=== PATIENT | male | born 1965 | race Caucasian/White ===

== ENCOUNTER 2019-03-11 11:45 | Inpatient (IN) | payer MEDICARE ==
[~2019-03-11] VITALS: Ht 175.3 cm; Wt 40.8 kg
[~2019-03-11 11:45] MED LIST: ADVAIR 250/501 DISK INH; ASPIRIN325 MG PO; AUGMENTIN 875-11 TAB PO; BAYER CHEWABLE81 MG PO; KLOR-CON 1010 MEQ PO; LANOXIN125 MCG PO; LASIX40 MG; LASIX40 MG PO; LOPRESSOR25 MG PO; METOPROLOL TART50 MG PO; PACERONE200 MG PO; PLAVIX75 MG PO; PRAVACHOL20 MG PO; PREDNISONE20 MG PO; XANAX0.25 MG PO
[2019-03-11 12:28] LABS: ALBUMIN 3.4 g/dL (3.4-5.0); ALKALINE PHOSPHATASE 71 U/L (46-116); ALT (SGPT) 15 U/L (10-68); BILIRUBIN - TOTAL 0.65 mg/dL (0.2-1.3); CALC OSMOLALITY 275 mosm/kg (275-300); CALCIUM 8.9 mg/dL (8.5-10.1); CARBON DIOXIDE 21.5 mmol/L (21.0-32.0); CHLORIDE - SERUM 94 mmol/L (98-107); GLUCOSE 98 mg/dL (74-106); PROTEIN - SERUM 6.9 g/dL (6.4-8.2); SODIUM 135 mmol/L (136-145); UREA NITROGEN 28 mg/dL (7-18); eGFR NON AFRICAN AMERICAN 82 mL/min (90-120)
[2019-03-11 12:36] LABS: POTASSIUM - SERUM 2.8 mmol/L (3.5-5.1)
--- NOTE | 2019-03-11 12:36 | NUR ---
DR. MENDENHALL NOTIFIED AND REVIEWED PATIENT'S BEHAVIOR AND ASSESSMENT RESULTS. PATIENT IS AT LOW RISK PER DR. MENDENHALL. RESOURCES GIVEN AND REVIEWED WITH PATIENT. HE VERBALIZES UNDERSTANDING.
[2019-03-11 12:44] LABS: BASOPHILS 0 % (0-2); EOSINOPHILS 0.1 % (0-7); HEMOGLOBIN 10.5 g/dL (13.5-17.5); IMMATURE GRANULOCYTES 0.3 % (0-5); LYMPHOCYTES 5.2 % (15-50); MCH 35.2 pg (26.0-34.0); MCHC 33.9 g/dL (31.0-37.0); MEAN PLATELET VOLUME 10.4 fL (7.4-10.4); MONOCYTES 4.9 % (2-11); NEUTROPHILS 89.5 % (40-80); RBC 2.98 10x6/uL (4.20-6.10); RDW 25.7 % (11.5-14.5); WBC 7.3 10x3/uL (4.8-10.8)
[2019-03-11 12:52] LABS: PLATELET COUNT 72 10x3/uL (130-400)
[2019-03-11 13:12] LABS: PLATELET ESTIMATE DECREASED
[2019-03-11 13:13] LABS: ANISOCYTOSIS OCC; CRENATED CELLS OCC; ROULEAUX OCC
[2019-03-11 14:47] LABS: CREATINE KINASE 52 UL (21-232); MAGNESIUM - SERUM 1.9 mg/dL (1.8-2.4); TROPONIN-I 0.038 ng/mL (0.000-0.060)
[2019-03-11 16:14] LABS: THYROID STIMULATING HORMONE 5.17 uIU/mL (0.36-3.74)
[2019-03-11 16:42] LABS: APPEARANCE CLEAR (CLEAR); BILIRUBIN NEGATIVE (NEGATIVE); COLOR YELLOW (YELLOW); GLUCOSE NEGATIVE (NEGATIVE); KETONE MODERATE mg/dL (NEGATIVE); NITRITE NEGATIVE (NEGATIVE); PROTEIN NEGATIVE (NEGATIVE); UROBILINOGEN NORMAL (NORMAL)
[2019-03-11 16:43] LABS: WHITE CELLS - URINE OCC /hpf (NEGATIVE)
[2019-03-11 16:45] LABS: RED CELLS - URINE 0-5 /hpf (0-5)
[2019-03-11 21:21] LABS: APTT 36.6 SECONDS (22.8-39.4); INR 0.99 (0.85-1.17)
[2019-03-11 21:42] LABS: % SATURATION 29 % (15-55); IRON 86 ug/dl (35-150); TOTAL IRON BIND CAPACITY 296 ug/dl (260-445); UNSAT IRON BIND CAPACITY 210 ug/dl (150-375)
[2019-03-12] VITALS (7 sets, daily range): BP systolic 109–154; BP diastolic 49–92; BMI 13.3; BMI 13.2
[2019-03-12 05:25] LABS: BASOPHILS 0 % (0-2); EOSINOPHILS 0.3 % (0-7); HEMATOCRIT 27.3 % (42.0-54.0); HEMOGLOBIN 9.3 g/dL (13.5-17.5); IMMATURE GRANULOCYTES 0.4 % (0-5); LYMPHOCYTES 12.8 % (15-50); MCH 35.5 pg (26.0-34.0); MCHC 34.1 g/dL (31.0-37.0); MCV 104.2 fL (80.0-100.0); MONOCYTES 6.4 % (2-11); NEUTROPHILS 80.1 % (40-80); PLATELET COUNT 66 10x3/uL (130-400); RBC 2.62 10x6/uL (4.20-6.10); RDW 25.9 % (11.5-14.5); WBC 7.8 10x3/uL (4.8-10.8)
[2019-03-12 06:00] LABS: CALCIUM 8.4 mg/dL (8.5-10.1); CARBON DIOXIDE 24.7 mmol/L (21.0-32.0); CHLORIDE - SERUM 99 mmol/L (98-107); CREATININE - SERUM 0.8 mg/dL (0.6-1.3); MAGNESIUM - SERUM 1.6 mg/dL (1.8-2.4); SODIUM 137 mmol/L (136-145); eGFR NON AFRICAN AMERICAN > 90 mL/min (90-120)
[2019-03-12 06:03] LABS: CALC OSMOLALITY 272 mosm/kg (275-300); GLUCOSE 70 mg/dL (74-106); UREA NITROGEN 14 mg/dL (7-18)
[2019-03-12 06:04] LABS: POTASSIUM - SERUM 2.7 mmol/L (3.5-5.1)
--- NOTE | 2019-03-12 08:14 | NUR ---
PATIENT RECIEVED RESTING IN BED, RESPIRATIONS REGULAR AND NONLABORED. REPORTS PAIN TO MOUTH AND THROAT AREA. DIFFICULT TO UNDERSTAND SPEECH AT TIMES. WILL GIVE MORPHINE IN TIME ALLOWED. CL IN REACH
[2019-03-13 00:30] VITALS: BP 107/65
--- NOTE | 2019-03-13 04:27 | NUR ---
PATIENT STATED HE COULD NOT BREATHE. PATIENTS O2 SAT WAS AT 75. PUT PATIENTS OXYGEN ON AND CALLED RT. RT STARTED PATIENT ON HIGH FLOW NASAL CANULA AT 9L/MIN. O2 SAT WENT BACK UP TO 98%.
[2019-03-13 05:30] VITALS: BP 161/102
[2019-03-13 06:24] LABS: BASOPHILS 0 % (0-2); EOSINOPHILS 0 % (0-7); HEMATOCRIT 25.3 % (42.0-54.0); HEMOGLOBIN 8.6 g/dL (13.5-17.5); IMMATURE GRANULOCYTES 1.1 % (0-5); LYMPHOCYTES 2.2 % (15-50); MCV 105.9 fL (80.0-100.0); MEAN PLATELET VOLUME 9.1 fL (7.4-10.4); MONOCYTES 4.1 % (2-11); NEUTROPHILS 92.6 % (40-80); RBC 2.39 10x6/uL (4.20-6.10); RDW 26.6 % (11.5-14.5); WBC 9.2 10x3/uL (4.8-10.8)
[2019-03-13 06:37] LABS: CARBON DIOXIDE 26.9 mmol/L (21.0-32.0); CHLORIDE - SERUM 99 mmol/L (98-107); CREATININE - SERUM 0.7 mg/dL (0.6-1.3); MAGNESIUM - SERUM 1.9 mg/dL (1.8-2.4); SODIUM 133 mmol/L (136-145); UREA NITROGEN 11 mg/dL (7-18); eGFR NON AFRICAN AMERICAN > 90 mL/min (90-120)
[2019-03-13 06:39] LABS: CALC OSMOLALITY 267 mosm/kg (275-300); GLUCOSE 153 mg/dL (74-106); POTASSIUM - SERUM 4.6 mmol/L (3.5-5.1)
[2019-03-13 06:42] LABS: PLATELET COUNT 50 10x3/uL (130-400)
[2019-03-13 07:07] LABS: PLATELET ESTIMATE DECREASED
[2019-03-13 09:24] VITALS: BP 119/76
[2019-03-13 13:41] VITALS: BP 104/67
[2019-03-13 14:46] VITALS: Ht 175.3 cm; Wt 40.8 kg
--- NOTE | 2019-03-13 14:51 | NUR ---
Nutrition consult for PET tube feeding: PEG tube placed this afternoon and will be usable @ 1800 per surgeon RDN will order Osmolite 1.0 pillo to start @ 20 ml/hr. Check residuals per protocol. If residuals ate < 125 ml, increase TF 10 ml q 6 hours to goal rate of 55 ml/hr. Flush tube with 100 ml H2O q 4 hours. HOB > [address] following.
--- NOTE | 2019-03-13 16:30 | NUR ---
PATIENT IV CAME OUT. CATH TIP INTACT. RESTARTED IN LEFT FA X 1 STICK WITH NO PROBLEMS. FAMILY AT BEDSIDE. CALL LIGHT WITHIN REACH. PEG TUBE INTACT.
[2019-03-13 17:16] VITALS: BP 133/81
[2019-03-13 20:00] VITALS: BP 152/98
[2019-03-14] VITALS: BP 114/72
--- NOTE | 2019-03-14 01:56 | NUR ---
I have reviewed this patient and I concur with the Shift Assessment completed by the Licensed Practical Nurse today this shift.
--- NOTE | 2019-03-14 02:26 | NUR ---
PT RESTING IN BED. EYES CLOSED. NO SIGNS OF DISTRESS. BREATHING EVEN AND UNLABROED. 6LO2 HIGH FLOW NASAL CANNULA. LUNG SOUNDS DIMINISHED AND WHEEZING PRESENT. TELE MONITOR ON 80 NORMAL SINUS. LT UPPER ABD PEG TUBE PRESENT. NO LOWER LEG SWELLING PRESENT. WILL CONTINUE PLAN OF CARE. CALL LIGHT IN REACH. BED LOWERED AND LOCKED. BED RAILS UPX2.
[2019-03-14 04:00] VITALS: BP 136/61
[2019-03-14 07:41] LABS: BASOPHILS 0 % (0-2); EOSINOPHILS 0 % (0-7); HEMATOCRIT 23.9 % (42.0-54.0); HEMOGLOBIN 7.8 g/dL (13.5-17.5); IMMATURE GRANULOCYTES 0.6 % (0-5); MCH 35.1 pg (26.0-34.0); MCHC 32.6 g/dL (31.0-37.0); MCV 107.7 fL (80.0-100.0); MEAN PLATELET VOLUME 12.3 fL (7.4-10.4); MONOCYTES 3.9 % (2-11); NEUTROPHILS 92.5 % (40-80); PLATELET COUNT 50 10x3/uL (130-400); RBC 2.22 10x6/uL (4.20-6.10); RDW 27.4 % (11.5-14.5); WBC 8.8 10x3/uL (4.8-10.8)
[2019-03-14 08:02] LABS: % SATURATION 15 % (15-55); IRON 25 ug/dl (35-150); TOTAL IRON BIND CAPACITY 165 ug/dl (260-445); UNSAT IRON BIND CAPACITY 140 ug/dl (150-375)
[2019-03-14 08:26] LABS: PLATELET ESTIMATE DECREASED
[2019-03-14 08:30] LABS: CALC OSMOLALITY 265 mosm/kg (275-300); CALCIUM 8.2 mg/dL (8.5-10.1); CARBON DIOXIDE 27.9 mmol/L (21.0-32.0); CHLORIDE - SERUM 101 mmol/L (98-107); CREATININE - SERUM 0.6 mg/dL (0.6-1.3); FERRITIN 306 ng/mL (3-244); GLUCOSE 106 mg/dL (74-106); MAGNESIUM - SERUM 1.8 mg/dL (1.8-2.4); POTASSIUM - SERUM 5.7 mmol/L (3.5-5.1); SODIUM 133 mmol/L (136-145); UREA NITROGEN 12 mg/dL (7-18); eGFR NON AFRICAN AMERICAN > 90 mL/min (90-120)
[2019-03-14 09:13] VITALS: BP 100/63
--- NOTE | 2019-03-14 10:13 | NUR ---
PT REFUSED TX PT UP SET STOMACH
--- NOTE | 2019-03-14 11:25 | NUR ---
RESTING IN BED, NO DISTRESS NOTED, AWAITING ON FEEDING FROM KITCHEN TO START PEG TUBE FEEDING, CONT TO MONITOR PAIN AND RESP STATUS
[2019-03-14 13:38] VITALS: BP 113/55
--- NOTE | 2019-03-14 14:00 | NUR ---
1ST UNIT OF BLOOD STARTED
[2019-03-14 17:12] VITALS: BP 116/60
--- NOTE | 2019-03-14 18:34 | NUR ---
2ND UNIT OF BLOOD INFUSING, MACIEL WELL, CONT TO MONITOR RESP AND PAIN
--- NOTE | 2019-03-14 19:50 | NUR ---
2ND UNIT OF PRBCS TRANFUSING. PT APPEARS WEAK AND ILL. ALERT AND ORIENTED BUT CONFUSED AT TIMES. C/O PAIN IN NECK 8. JUST RECEIVED MORPHINE PRIOR TO SHIFT CHANGE. C/O SOB. O2 @ 9L/HFC. SAO2 WNL. HOB ELEVATED. PROD COUGH WITH YELLOW/BLOOD TINGED SPUTUM NOTED. LESION NOTED IN MOUTH. PEG TUBE WITH OSMOLITE 1.0 @ 35 MLHR. SPEECH IS DIFF TO UNDERSTAND. USES URINAL. IV SITE NOTED TO RT FOREARM AND LT FOREARM. PT IS EMACIATED. BED ALARM ON FOR PT SAFETY.
[2019-03-14 20:00] VITALS: BP 128/84
--- NOTE | 2019-03-14 21:30 | NUR ---
PRBCS FINISHED TRANSFUSING AT THIS TIME. V/S STABLE.
--- NOTE | 2019-03-14 23:50 | NUR ---
MEDICATED WITH MORPHINE FOR C/O PAIN IN NECK RATING 9. PEG TUBE RESIDUAL 150. CONT FEEDINGS @ 35 MLHR. HOB ELEVATED. CL IN REACH.
[2019-03-15] VITALS (8 sets, daily range): BP systolic 116–166; BP diastolic 71–108
--- NOTE | 2019-03-15 02:38 | NUR ---
ALERT. SAT UP ON SIDE OF BED TO USE URINAL. ASSISTED BACK IN BED. VERY WEAK. CL IN REACH. BED ALARM ON.
--- NOTE | 2019-03-15 06:05 | NUR ---
MEDICATED WITH MORPHINE FOR C/O NECK PAIN RATING 10. CL IN REACH.
[2019-03-15 06:44] LABS: CALC OSMOLALITY 268 mosm/kg (275-300); CALCIUM 8.2 mg/dL (8.5-10.1); CARBON DIOXIDE 29.6 mmol/L (21.0-32.0); CHLORIDE - SERUM 101 mmol/L (98-107); CREATININE - SERUM 0.6 mg/dL (0.6-1.3); GLUCOSE 118 mg/dL (74-106); MAGNESIUM - SERUM 1.7 mg/dL (1.8-2.4); POTASSIUM - SERUM 4.4 mmol/L (3.5-5.1); SODIUM 134 mmol/L (136-145); UREA NITROGEN 12 mg/dL (7-18); eGFR NON AFRICAN AMERICAN > 90 mL/min (90-120)
--- NOTE | 2019-03-15 06:45 | NUR ---
PEG TUBE RESIDUAL LESS THAN 10 ML. OSMOLITE INCREASED TO 45 MLHR. HOB ELEVATED.
[2019-03-15 07:09] LABS: BASOPHILS 0.1 % (0-2); EOSINOPHILS 0.5 % (0-7); HEMATOCRIT 29.3 % (42.0-54.0); IMMATURE GRANULOCYTES 0.7 % (0-5); LYMPHOCYTES 4.6 % (15-50); MCHC 34.1 g/dL (31.0-37.0); MCV 99.7 fL (80.0-100.0); MEAN PLATELET VOLUME 10.7 fL (7.4-10.4); MONOCYTES 8.1 % (2-11); RBC 2.94 10x6/uL (4.20-6.10); RDW 24.8 % (11.5-14.5); WBC 8.6 10x3/uL (4.8-10.8)
[2019-03-15 07:10] LABS: PLATELET COUNT 44 10x3/uL (130-400)
--- NOTE | 2019-03-15 07:42 | NUR ---
PLT COUNT OF 44 REPORTED TO DAMION ESTEVES AT PRESENT, REVIEWED PT MEDS
--- NOTE | 2019-03-15 09:22 | NUR ---
RESTING IN BED, NO DISTRESS NOTED, TUBE FEEDING PER PEG, TELE IN PLACE, O2 PER NC, PROCAL AT 50 PER LFA, CONT TO MONITOR
--- NOTE | 2019-03-15 19:07 | NUR ---
NOT FINDING PERCOCET TO HELP MUCH WITH PAIN, CONT TO MONITOR
--- NOTE | 2019-03-15 19:30 | NUR ---
IV PUMP ALARMING. OFFGOING NURSE AND THIS PRECISION MACHINE OPERATOR ARRIVED IN ROOM TO FIND IV IRON INFILTRATED IN RT FOREARM AT THIS TIME. IV CATH REMOVED.
--- NOTE | 2019-03-15 19:37 | NUR ---
1800 FEEING STOPPED AT PT REQUEST EARLIER IN SHIFT, NO RESIDUAL TO REPORT, PT NOW STATES THAT HE WANTS FEEDING OFF ALL NIGHT
--- NOTE | 2019-03-15 20:05 | NUR ---
SITTING UP IN BED. TUBE FEEDING IS TURNED OFF. PT REFUSING TO HAVE FEEDING ON. PEG TUBE IS CLAMPED. HOB ELEVATED. O2 @ 9L/HFC. RESP LABORED, IRREG. SOB. SKIN TONES ARE PALE ZAPATA. ASKING FOR PAIN MED. RECEIVED MORPHINE AT 1759 AND EXPLAINED THAT IT ISNT DUE YET. REPORTS PAIN IN THROAT AND NECK. PT IS EMACIATED AND VERY WEAK. ALERT AND ORIENTED TO SELF, PLACE AND SITUATION. CONFUSED TO TIME. TELEMETRY SHOWS ST WITH RATE OF 110. REQUESTING XANAX FOR ANXIETY. BBS RHONCHI. 1+ EDEMA NOTED TO BLE. SPEECH DIFF TO UNDERSTAND. WRITES ON TABLET. DANIKA ALARM ON FOR PT SAFETY. CL IN REACH.
--- NOTE | 2019-03-15 20:10 | NUR ---
MEDICATED WITH XANAX FOR ANXIETY. CL IN REACH.
--- NOTE | 2019-03-15 22:00 | NUR ---
MEDICATED WITH MORPHINE FOR C/O PAIN IN NECK RATING 10. RESP LABORED, IRREG. CL IN REACH.
--- NOTE | 2019-03-15 22:50 | NUR ---
PT C/O DIFF BREATHING. SAO2 89%. O2 @ 9L/HFC. PT SITTING STRAIGHT UP IN BED. LABORED BREATHING. RR 16. HR 141. TELEMETRY SHOWS SINUS TACH. B/P 166/108. RAPID RESPONSE CALLED AT THIS TIME. ABGS DONE. PT PLACED ON VAPOTHERM 40L. SAO2 100%. PT STILL LABORED. ATTEMPTED TO REACH PTS MOTHER, CRISTY WITH NO ANSWER. MSG LEFT FOR HER TO CALL OR COME TO HOSPITAL DUE TO DECLINE IN HEALTH.
--- NOTE | 2019-03-15 23:28 | NUR ---
SITTING UP IN BED USING URINAL. ALERT AND TALKING TO STAFF. VAPOTHERM IN USE. SAO2 100%. CL IN REACH.
--- NOTE | 2019-03-15 23:40 | NUR ---
VAPOTHERM @ 40L, 85% O2 . PT SAO2 95% AT THIS TIME. ALERT. STATES HE FEELS BETTER.
[2019-03-16] VITALS: BP 151/107
--- NOTE | 2019-03-16 01:43 | NUR ---
C/O NAUSEA. MEDICATED WITH ZOFRAN. CL IN REACH.
--- NOTE | 2019-03-16 02:00 | NUR ---
C/O PRESSURE IN CHEST AND DRYNESS IN THROAT FROM VAPOTHERM AND TAKING IT OFF. NOTIFIED RT. RT SPOKE WITH PT ABOUT IMPORTANCE OF LEAVING IT ON. SETTINGS CHANGED TO 30L, 70% O2. PT SAO2 100%. WILL CONT TO MONITOR.
--- NOTE | 2019-03-16 03:30 | NUR ---
VAPOTHERM @ 30L, 60% O2 AT THIS TIME. SAO2 98%
[2019-03-16 04:00] VITALS: BP 151/98
--- NOTE | 2019-03-16 04:36 | NUR ---
ALERT. REQUESTING PAIN MED. SITTING STRAIGHT UP IN BED. VAPOTHERM IN USE. RESP REMAIN LABORED. MEDICATED WITH MORPHINE ORDERED FOR C/O PAIN IN NECK RATING 10. CL IN REACH.
[2019-03-16 05:14] LABS: BASOPHILS 0 % (0-2); EOSINOPHILS 0 % (0-7); HEMATOCRIT 31.5 % (42.0-54.0); HEMOGLOBIN 10.6 g/dL (13.5-17.5); IMMATURE GRANULOCYTES 0.7 % (0-5); LYMPHOCYTES 4.9 % (15-50); MCH 33.9 pg (26.0-34.0); MCHC 33.7 g/dL (31.0-37.0); MCV 100.6 fL (80.0-100.0); MEAN PLATELET VOLUME 10.4 fL (7.4-10.4); MONOCYTES 15.2 % (2-11); NEUTROPHILS 79.2 % (40-80); RBC 3.13 10x6/uL (4.20-6.10); RDW 24.8 % (11.5-14.5); WBC 7.1 10x3/uL (4.8-10.8)
--- NOTE | 2019-03-16 05:19 | NUR ---
SITTING UP IN BED. DROWSY. SAO2 97% AT THIS TIME. VAPORTHERM IN USE. CL IN REACH. RESP STILL LABORED BUT APPEARS TO BE MORE COMFORTABLE AT THIS TIME.
[2019-03-16 05:31] LABS: CALC OSMOLALITY 268 mosm/kg (275-300); CALCIUM 8.3 mg/dL (8.5-10.1); CARBON DIOXIDE 33.6 mmol/L (21.0-32.0); CHLORIDE - SERUM 96 mmol/L (98-107); CREATININE - SERUM 0.6 mg/dL (0.6-1.3); GLUCOSE 119 mg/dL (74-106); MAGNESIUM - SERUM 1.6 mg/dL (1.8-2.4); POTASSIUM - SERUM 4.6 mmol/L (3.5-5.1); SODIUM 133 mmol/L (136-145); eGFR NON AFRICAN AMERICAN > 90 mL/min (90-120)
[2019-03-16 05:36] LABS: PLATELET COUNT 45 10x3/uL (130-400)
[2019-03-16 05:56] LABS: UREA NITROGEN 19 mg/dL (7-18)
--- NOTE | 2019-03-16 06:20 | NUR ---
C/O DIFF BREATHING AGAIN. SAO2 80% HR 137. NOTIFIED RT. INCREASED VAPORTHERM TO 40L AND 70% O2. SAO2 CAME UP TO 95%. PT STILL ALERT AND STATES HE WANTS ALL RESUSCITATIVE MEASURES IF NEEDED. ENCOURAGED SLOW, DEEP BREATHING, RELAXATION.
--- NOTE | 2019-03-16 07:14 | NUR ---
RT CALLED TO PATIENT ROOM. PATIENT ON VAPOTHERM 40L, 80%. PATIENT WITH LABORED BREATHING, HE IS DIFFICULT TO UNDERSTAND WHEN SPEAKING, COMPLAINING OF SOB AND NECK/THROAT PAIN. THIS RT SPOKE WITH PATIENT AT LENGTH AND PATIENT STATES HE WOULD LIKE TO SIGN A DNR. PATIENT ALSO WROTE "HOSPICE?" ON HIS NOTEBOOK AT THE BEDSIDE. WILL PASS THIS INFORMATION TO RN CARING FOR PATIENT TODAY. PATIENT ALSO STATES THAT HIS MOTHER WILL BE HERE LATER TODAY AND THAT SHE HELPS HIM IN HIS DECISION MAKING. HE DID SAY THAT "MORE THAN ANYTHING, I WANT TO GO HOME" WILL CONTINUE TO MONITOR ANY DECLINE IN RESPIRATORY STATUS.
--- NOTE | 2019-03-16 08:02 | NUR ---
PATIENT AWAKE AND ALERT. SITTING AT A 90 DEGREE ANGLE IN BED USING A YANKAUER. REQUESTING A PERCOCET. BED ALARM ON. CL IN REACH. TM
[2019-03-16 08:56] VITALS: BP 135/102
--- NOTE | 2019-03-16 11:02 | NUR ---
WENT TO APPLY CONTINUOUS PULSE OX. PATIENT RESPONSIVE. VAPOTHERM WAS NOT ON. I REAPPLIED THE VAPOTHERM. PULSE OX WAS 60%. RT AUBREY CAME AND PUT THE VAPOTHERM BACK ON 40L. SAT IS NOW 98-99%. CL IN REACH. CONTINUOUS PULSE OX ON. FALL PRECAUTIONS IN PLACE. WCTM
[2019-03-16 12:18] VITALS: BP 144/97
[2019-03-16 12:29] LABS: CKMB 5.9 U/L (0.0-3.6); CREATINE KINASE 150 UL (21-232)
[2019-03-16 12:39] LABS: TROPONIN-I 2.531 ng/mL (0.000-0.060)
--- NOTE | 2019-03-16 12:41 | NUR ---
ATTEMPTED TO CALL SEFER[facility] ABOUT SON STATUS CHANGE. VOICE MAIL REACHED.
--- NOTE | 2019-03-16 14:21 | NUR ---
MOTHER AT BEDSIDE. PATIENT IS RESTING COMFORTABLY. CL IN REACH. WCTM
--- NOTE | 2019-03-16 15:03 | MORECARE ---
CASE MANAGEMENT DISCHARGE SUMMARY PATIENT: YENNY LEYVA UNIT: [id number] ADM DATE: 03/11/19 AGE: 53 : 61 SEX: M ROOM/BED: D.2231 AUTHOR: BERNADETTEDOC PHYSICIAN: REFERRING PHYSICIAN: STACY CHICAS MD DATE OF SERVICE: 03/16/19 Discharge Plan Patient Name: YENNY LEYVA Facility: [facility]:[place] : 1965 Planned Disposition: Hospice Medical Facility Anticipated Discharge Date: 03/16/19 Discharge Date: Expected LOS: 5 Initial Reviewer: [email or web address] Initial Review Date: 03/16/2019 Generated: 03/16/19 4:03 pm Comments DCP- Discharge Planning Updated by [id number]: Syeda Jackson on 03/16/19 1:[address] Patient's mother is at bedside. I have an order for a hospice consult. I informed her of the hospice agencies and NANCY form given. She would like him to stay at [facility], so form signed for [facility] for GIP. She states prior to coming here he was independent with all ADL's. States he lived alone and had no outside services assisting him or medical equipment. I called Bud in [employer] and he states the patient does have Medicare A and they were doing Medicaid spin down. I spoke with Colin with [facility] and clinical faxed. Colin is here now visiting with patient's mother. CM will continue to follow and assist with discharge planning/needs. DCPIA - Discharge Planning Initial Assessment Updated by [id number]: Syeda Jackson on 03/16/19 2:56 pm * Is the patient Alert and Oriented? No * PCP None * Preadmission Environment Home Alone * ADLs Independent * Equipment None * List name and contact numbers for known caregivers / representatives who currently or will assist patient after discharge: Fransisca Falcon - mother - [phone] * Verbal permission to speak to the caregivers and representatives has been obtained from the patient. Yes * Community resources currently utilized None * Additional services required to return to the preadmission environment? Yes * Can the patient safely return to the preadmission environment? No * Has this patient been hospitalized within the prior 30 days at any hospital? No External Providers [facility](provides inp Next Contact Date: Service Request Date: Service Type: Resolution: Reviewer: Comments: Coverage Notice Reviewer: [id number] Tina Syeda Renetta Notice Issued Date-Time: 03/16/2019 14:57 Notice Type: Patient Choice Letter Notice Delivered To: Family Member Relationship to Patient: Mother Welding Machine Operator Resistance Name: Fransisca Falcon Delivery Method: HAND - Hand Delivered Bonita Days: Prior Verbal Notification: Recipient Understood Notice: Yes Recipient Signature: Yes Med Rec Note Co-signed by Attending: Coverage Notice Comment: NANCY for [facility] Patient Name: YENNY LEYVA Page [id number] at 1503 All edits/amendments must be made on the electronic document DICTATION DATE: 03/16/191502 CITY DISPATCH SUPERVISOR: LIZBET 03/16/19 1503 RPT#: [id number] DC DATE: STATUS: ADM IN [facility] [address] [place] [address] END OF REPORT
[2019-03-16 16:34] VITALS: BP 73/41
--- NOTE | 2019-03-16 17:34 | NUR ---
WENT TO ROOM. FOUND PATIENT PULSELESS AND NOT BREATHING. FAMILY AT BEDSIDE. PATIENT DNR. CALLED DR ALBERTO TO NOTIFY.
--- NOTE | 2019-03-16 19:32 | MORECARE ---
CASE MANAGEMENT DISCHARGE SUMMARY PATIENT: YENNY LEYVA UNIT: [id number] ADM DATE: 03/11/19 AGE: 53 : 61 SEX: M ROOM/BED: D.2231 AUTHOR: JULISSA FLEMING PHYSICIAN: REFERRING PHYSICIAN: STACY CHICAS MD DATE OF SERVICE: 03/16/19 Discharge Plan Patient Name: YENNY LEYVA Facility: [facility]:[place] : 1965 Planned Disposition: Hospice Medical Facility Anticipated Discharge Date: 03/16/19 Discharge Date: Expected LOS: 5 Initial Reviewer: [email or web address] Initial Review Date: 03/16/2019 Generated: 03/16/19 8:31 pm Comments DCP- Discharge Planning Updated by [id number]: Emmy Santoyo on 03/16/19 6:[address] CM CALLED AT 1820 BY PRIMARY NURSE, KE. THE PATIENT HAS . THE [facility] NURSE WAS ON SITE EARLIER AND PATIENT HAD [facility] ARRIVED. TC TO [facility]. CM SPOKE W/ TOM, THE [facility]IR[facility] NURSE. SHE STATED THE PATIENT HAD NOT BEEN ADMITTED. CM REQUESTED HAIR ROOTING MACHINE OPERATOR OR RN TRIAGE TO ASSIST W/ REQUEST FOR PROVIDERS. CM SPOKE WITH THE FAMILY PER THE PRIMARY NURSE REQUEST. THE FAMILY NEEDS ASSISTANCE REGARDING PROVIDERS OF SERVICES. THEY WOULD LIKE CREMATION. THE MOTHER STATES THE PATIENT DID NOT HAVE INSURANCE. MANNY PROVIDED A LIST OF PROVIDERS IN THE AREA. [facility] 1904 TELEPHONE CALL TO MR MARCOS. REQUEST PROVIDED. HE WILL BE IN TO MEET WITH THE FAMILY. CM RECEIVED A TELEPHONE CALL FROM [facility], RN TRIAGE. SHE ASK IF SHE COULD ASSIST THE FAMILY. CM [facility]ED [facility] AND NOTIFIED. MANNY PROVIDED THE PHONE NUMBER FOR FRANSISCA FALCON, THE PATIENT'S MOTHER. PHONE NUMBER [phone]. CM RETURNED TO THE ROOM TO SPEAK WITH THE FAMILY, THE RN TRIAGE CALLED. MANNY SPOKE WITH KE AND THE ONCOMING NURSE TO PROVIDE UPDATE. DCP- Discharge Planning Updated by [id number]: Syeda Jackson on 03/16/19 1:[address] Patient's mother is at bedside. I have an order for a hospice consult. I informed her of the hospice agencies and NANCY form given. She would like him to stay at [facility], so form signed for [facility] for GIP. She states prior to coming here he was independent with all ADL's. States he lived alone and had no outside services assisting him or medical equipment. I called Bud in [employer] and he states the patient does have Medicare A and they were doing Medicaid spin down. I spoke with Colin with [facility] and clinical faxed. Colin is here now visiting with patient's mother. CM will continue to follow and assist with discharge planning/needs. DCPIA - Discharge Planning Initial Assessment Updated by [id number]: Syeda Jackson on 03/16/19 2:56 pm * Is the patient Alert and Oriented? No * PCP None * Preadmission Environment Home Alone * ADLs Independent * Equipment None * List name and contact numbers for known caregivers / representatives who currently or will assist patient after discharge: Fransisca Falcon - mother - [phone] * Verbal permission to speak to the caregivers and representatives has been obtained from the patient. Yes * Community resources currently utilized None * Additional services required to return to the preadmission environment? Yes * Can the patient safely return to the preadmission environment? No * Has this patient been hospitalized within the prior 30 days at any hospital? No Coverage Notice Reviewer: [id number] - Syeda Jackson Notice Issued Date-Time: 03/16/2019 14:57 Notice Type: Patient Choice Letter Notice Delivered To: Family Member Relationship to Patient: Mother Freezer Tunnel Operator Name: Fransisca Falcon Delivery Method: HAND - Hand Delivered Bonita Days: Prior Verbal Notification: Recipient Understood Notice: Yes Recipient Signature: Yes Med Rec Note Co-signed by Attending: Coverage Notice Comment: NANCY for [facility] Last DP export: 03/16/19 2:03 p Patient Name: YENNY LEYVA Page [id number] at 1932 All edits/amendments must be made on the electronic document DICTATION DATE: 03/16/191930 TRUCK RAILROAD AND BUS MOTOR MECHANIC: LIZBET 03/16/191930 RPT#: [id number] DC DATE: STATUS: ADM IN [facility] [address] [place] [address] END OF REPORT
--- NOTE | 2019-03-16 19:54 | NUR ---
BODY RELEASED TO [facility] PRESENT
--- NOTE | 2019-03-17 14:05 | OP ---
PATIENT NAME: YENNY LEYVA MEDICAL RECORD: [id number] :[birth year] LOCATION:D.MS [id number] ADMISSION DATE:03/11/19 SURGEON: KAREN CHAVEZ MD DATE OF OPERATION: 03/13/2019 PREOPERATIVE DIAGNOSES: 1. Dysphagia with failure to thrive. 2. Severe weight loss. 3. History of throat cancer. 4. Throat pain with throat lesion. POSTOPERATIVE DIAGNOSES: 1. Dysphagia with failure to thrive. 2. Severe weight loss. 3. History of throat cancer. 4. Throat pain with throat lesion. PROCEDURE: PEG tube placement. SURGEON: Karen Chavez MD REPORT OF PROCEDURE: An Olympus endoscope was advanced into the mouth. We could see the posterior aspect of the oropharynx and there was a lot of irritation with areas of patchy erythema, but no purulence. There was more swelling on the left side near the tonsillar region, did not see a distinct malignancy, but just a lot of swelling to the tissue. The scope was able to be advanced down through the esophagus and into the stomach. We could see the area where the previous gastrostomy tube had been placed. A total of 5 mL of 1% lidocaine was infused into the surrounding tissues and we were able to pass a needle through the skin into the gastric lumen. A wire was advanced through this needle and we were able to grasp this with an Endo snare. These were all brought out through the mouth and esophagus and the PEG tube was affixed to the wire. This wire and PEG tube were pulled through the anterior abdominal wall until it rested in good position and about 1.5 cm to skin. We did not readvance the scope at this time. COMPLICATIONS: None. CONDITION: Stable. ANESTHESIA: TIVA and local. BLOOD LOSS: Minimal. TRANSINT:[id number] Voice Confirmation ID: [id number] DOCUMENT ID: [id number] KAREN CHAVEZ MD at 1405 CC: [id number] DICTATION DATE: 03/13/19 1448 ASSISTANT ASSOCIATE FULL PROFESSOR: 03/13/19 2249 DIS IN 03/16/19 [id number] [place] [address]
== END 2019-03-16 19:56 | DRG 146 ==
LOC: D.ER 11:45 → D.MS 16:41
PROVIDERS: Family Medicine; Internal Medicine Nephrology; Surgery; ADMIT Family Medicine; ATTEND Family Medicine
PROC: 0DH63UZ Insertion of Feeding Device into Stomach, Percutaneous Approach (ICD-10-PCS; principal; 2019-03-13 13:30)
DX: C14.0 Malignant neoplasm of pharynx, unspecified (principal); J96.01 Acute respiratory failure with hypoxia; E43 Unspecified severe protein-calorie malnutrition; G92 Toxic encephalopathy; Z68.1 Body mass index [BMI] 19.9 or less, adult; E87.1 Hypo-osmolality and hyponatremia; C79.89 Secondary malignant neoplasm of other specified sites; R13.10 Dysphagia, unspecified; R62.7 Adult failure to thrive; Z85.89 Personal history of malignant neoplasm of other organs and systems; I11.0 Hypertensive heart disease with heart failure; I50.9 Heart failure, unspecified; I25.10 Atherosclerotic heart disease of native coronary artery without angina pectoris; I25.2 Old myocardial infarction; M54.9 Dorsalgia, unspecified; E03.9 Hypothyroidism, unspecified; D53.9 Nutritional anemia, unspecified; D69.6 Thrombocytopenia, unspecified; E87.6 Hypokalemia; J43.9 Emphysema, unspecified; J39.2 Other diseases of pharynx; R40.2364 Coma scale, best motor response, obeys commands, 24 hours or more after hospital admission; R40.2144 Coma scale, eyes open, spontaneous, 24 hours or more after hospital admission; R40.2244 Coma scale, best verbal response, confused conversation, 24 hours or more after hospital admission; R63.4 Abnormal weight loss; K14.8 Other diseases of tongue